=== PATIENT | male | born 1990 | race Caucasian/White ===

== ENCOUNTER 2019-03-30 03:40 | Emergency (ER) | payer BC ==
--- NOTE | 2019-03-30 07:59 | RAD ---
EXAM: 3 views of the right shoulder HISTORY: Reduction of right shoulder dislocation COMPARISON: None FINDINGS: There is no evidence of acute fracture or dislocation. No degenerative changes are present. No soft tissue swelling is seen. The visualized thorax is unremarkable. IMPRESSION: No evidence of acute osseous abnormality.
== END 2019-03-30 04:20 | disposition home or self-care (01) ==
LOC: ERS 03:40
DX: S43.004A Unspecified dislocation of right shoulder joint, initial encounter (principal); X50.9XXA Other and unspecified overexertion or strenuous movements or postures, initial encounter; Y93.84 Activity, sleeping
CPT/HCPCS: 23650

== ENCOUNTER 2020-05-25 09:50 | Outpatient (CLI) | payer BC ==
[2020-05-25] MEDS ORDERED: Iopamidol 370 76% 100 ML VIAL ONE (13:57)
[2020-05-25] MEDS ORDERED: Iopamidol 370 76% 50 ML VIAL FS ONE (13:57)
== END 2020-05-25 09:51 | disposition home or self-care (01) ==
LOC: CT 09:50
PROVIDERS: ATTEND Internal Medicine Gastroenterology
DX: R10.31 Right lower quadrant pain (principal); K76.9 Liver disease, unspecified
CPT/HCPCS: 74177

== ENCOUNTER 2020-05-25 12:04 | Inpatient (IN) | payer BC ==
[2020-05-25] MEDS ORDERED: Ondansetron PF 4 MG/2 ML Vial ONE (12:34)
[2020-05-25] MEDS ORDERED: Piperacillin/Tazobactam 4.5 GM VIAL ONE (12:34)
[2020-05-25] MEDS ORDERED: Morphine 4 MG/ML VIAL ONE (12:34)
[2020-05-25 12:39] LABS: Hemoglobin 16.1 g/dL (14.0-18.0); Mean Corpuscular HGB CONC 35.1 g/dL (32.0-36.0); Mean Corpuscular Hemoglobin 31.6 pg (27.0-31.0); Mean Corpuscular Volume 89.9 fL (78.0-98.0); Mean Platelet Volume 6.6 fL (7.4-10.4); Platelet Count 326 thou/uL (130-400); RBC Distribution Width 10.8 % (11.5-14.5); Red Blood Cell (RBC) Count 5.12 mill/uL (4.70-6.10); White Blood Cell (WBC) Count 20.3 thou/uL (4.8-10.8)
[2020-05-25 12:47] LABS: ALT (SGPT) 31 U/L (8-55); Albumin 4.2 g/dL (3.5-5.0); Alkaline Phosphatase 69 U/L (40-110); Anion Gap 17 mmol/L (10-20); Calc. Creatinine Clearance 0 mL/min (70-130); Calcium 9.5 mg/dL (7.8-10.44); Carbon Dioxide 27 mmol/L (22-29); Chloride 94 mmol/L (98-107); Globulin 4.2 g/dL (2.4-3.5); Glucose 98 mg/dL (70-105); Potassium 4.6 mmol/L (3.5-5.1); Protein, Total 8.4 g/dL (6.0-8.3); Sodium 133 mmol/L (136-145)
[2020-05-25 12:54] LABS: AST (SGOT) 28 U/L (5-34); BUN (Urea Nitrogen) 10 mg/dL (8.9-20.6); Bilirubin, Total 0.9 mg/dL (0.2-1.2)
[2020-05-25 13:12] LABS: Band 1 % (5-11); Eosinophils 1 % (0-10); Lymphocytes 4 % (21-51); MDiff Complete? YES; Monocytes 8 % (0-10); Neutrophil 84 % (42-75); RBC Morphology Normal; Reactive Lymphocytes 2 % (0-10)
[2020-05-25 13:16] LABS: Bilirubin Negative (Negative); Blood, Urine Negative (Negative); Clarity Clear (Clear); Glucose, Urine (Dipstick) Normal (Negative); Ketone, Urine Negative (Negative); Leukocyte Negative Leu/uL (Negative); Nitrite Negative (Negative); Protein, Urine (Dipstick) 10 mg/dL (Neg-Trace); Urobilinogen Normal mg/dL (Less than 2)
[2020-05-25 13:19] LABS: Specific Gravity, Urine 1.061 (1.002-1.036)
[2020-05-25 16:59] VITALS: BMI 27.3
[2020-05-25] MEDS: Piperacillin/Tazobactam 3.375 GM in Sodium Chloride 0.9% 100 ML IVPB SCH ×2 (17:05→23:58)
[2020-05-25] MEDS: Acetaminophen 500 MG TAB PO PRN (18:35)
[2020-05-25] MEDS: Ketorolac Tromethamine 30 MG/ML VIAL IVP PRN (18:39)
[2020-05-25] MEDS: Famotidine/PF 20 mg/2ml Vial SLOW IVP SCH (21:12)
[2020-05-25] MEDS: Sodium Chloride 0.9% 1,000 ML IV SCH (21:12)
[2020-05-26] MEDS: Ketorolac Tromethamine 30 MG/ML VIAL IVP PRN ×3 (05:15→23:29)
[2020-05-26] MEDS: Sodium Chloride 0.9% 1,000 ML IV SCH ×3 (05:16→20:42)
[2020-05-26] MEDS: Acetaminophen 500 MG TAB PO PRN ×2 (05:16→16:45)
[2020-05-26] MEDS: Piperacillin/Tazobactam 3.375 GM in Sodium Chloride 0.9% 100 ML IVPB SCH ×4 (05:16→23:29)
[2020-05-26] MEDS: Famotidine/PF 20 mg/2ml Vial SLOW IVP SCH ×2 (07:40→20:41)
[2020-05-26 09:51] LABS: SARS-CoV-2 NAA Rapid Test Not Detected (NotDetected)
[2020-05-26] MEDS ORDERED: Piperacillin/Tazobactam 3.375 GM VIAL ONE (10:43)
[2020-05-26] MEDS ORDERED: HYDROmorphone 0.5 MG/0.5 ML SYRINGE ONE (10:43)
[2020-05-26] MEDS ORDERED: Lidocaine 2% Jelly 5 ML TUBE ONE (10:43)
[2020-05-26] MEDS ORDERED: Fentanyl 100 MCG/2 ML VIAL ONE ×2 (10:43→13:48)
[2020-05-26] MEDS ORDERED: Midazolam HCl 2 mg/2 ml Vial ONE (10:43)
[2020-05-26] MEDS ORDERED: Sodium Chloride 0.9% 100 ML ONE (10:44)
[2020-05-26] MEDS ORDERED: Bupivacaine 0.25% HCL 30 ML VIAL ONE (10:51)
[2020-05-26] MEDS ORDERED: EPINEPHrine 1 MG/ML AMP ONE (10:51)
[2020-05-26] MEDS ORDERED: Lidocaine 1% w/Epinephrine 1:100K 20 ML VIAL ONE (10:51)
[2020-05-26] MEDS ORDERED: Glycopyrrolate 0.2 MG/ML 5 ML SYRINGE ONE (11:09)
[2020-05-26] MEDS ORDERED: Rocuronium Bromide 10 MG/ML (10ML VIAL) ONE (11:09)
[2020-05-26] MEDS ORDERED: PROPOFOL 200 MG/20 ML VIAL ONE (11:09)
[2020-05-26] MEDS ORDERED: Dexamethasone 20 MG/5 ML VIAL ONE (11:09)
[2020-05-26] MEDS ORDERED: Ondansetron PF 4 MG/2 ML Vial ONE (11:09)
[2020-05-26] MEDS ORDERED: Lidocaine 1% PF 5 ML VIAL ONE (11:09)
[2020-05-26] MEDS ORDERED: Promethazine HCl 25 MG/ML VIAL IM PRN (12:58)
[2020-05-26] MEDS ORDERED: Promethazine HCl 25 MG/ML VIAL SLOW IVP PRN (12:58)
[2020-05-26] MEDS ORDERED: Ondansetron HCl/PF 4 MG/2 ML Vial IVP PRN (12:58)
[2020-05-26] MEDS ORDERED: HYDROmorphone 2 MG/ML VIAL SLOW IVP PRN (12:58)
[2020-05-27] MEDS: Piperacillin/Tazobactam 3.375 GM in Sodium Chloride 0.9% 100 ML IVPB SCH (05:34)
[2020-05-27 05:38] VITALS: TEMP 97.6
[2020-05-27 08:10] VITALS: BP 126/86
[2020-05-27] MEDS: Famotidine/PF 20 mg/2ml Vial SLOW IVP SCH (08:48)
[2020-05-27] MEDS: Acetaminophen 500 MG TAB PO PRN (08:49)
[2020-05-27] MEDS ORDERED: Amoxicillin/Potassium Clav 875 MG TAB PO SCH (09:00)
[2020-05-27] MEDS ORDERED: Saccharomyces boulardii 250 MG CAP PO SCH (09:00)
== END 2020-05-27 15:13 | disposition home or self-care (01) | DRG 853 ==
LOC: ERS 12:04 → SURG A 12:57 → OBSVTOIN 05-26 16:11
PROVIDERS: ADMIT Surgery; ATTEND Surgery
PROC: 0DTJ4ZZ Resection of Appendix, Percutaneous Endoscopic Approach (ICD-10-PCS; principal; 2020-05-26)
DX: A41.9 Sepsis, unspecified organism (principal); K35.33 Acute appendicitis with perforation, localized peritonitis, and gangrene, with abscess; Z20.822 Contact with and (suspected) exposure to COVID-19; Z84.89 Family history of other specified conditions
CPT/HCPCS: 74177; 80053; 81003; 83605; 85025; 87040; 87635; 88304; 93005; 96365; 96366; 96374; 96375; 96376; G0378; J0171; J1100; J1170; J1885; J2250; J2270; J2405; J2543; J2704; J3010; J3490; Q9967; S0020; S0028; U0002; U0003; U0005